=== PATIENT | female | born 1995 | race Caucasian/White ===

== ENCOUNTER 2016-11-25 16:08 | Emergency (ER) | payer BC ==
--- NOTE | 2016-12-01 11:08 | ER ---
ADMIT: 11/25/2016 RM/LOC: ER [facility] MR#: [id number] [facility] [address] [place], [place] [id number] EL[address]IA [address] [address] Emergency Room Report SEX: F AGE: 21 : 1995 DATE: 11/25/2016 HISTORY OF PRESENT ILLNESS: The patient is a 21-year-old, female, presents to the emergency room anxious, not feeling well, not eating, has not seen her mother for 6 years ago, so she is a bit more depressed now that she had in the past. The police officers were here as well. Friends apparently called on her because they were concerned about her well being. She denies any suicidal thoughts or suicidal plan in the past; however, about 3 to 5 years ago she attempted by trying to jump off a building, but somebody came and rescued her from it. 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 Her vitals are within normal limits. She is a little anxious. She is crying. She is obviously down. As I spoke with her in [place]ian, she was more adhesed and was able to open up. She is not a threat to herself. She is specifically explained to me that she is not wanting to harm self or anyone. She is just sad because she would like to see her family and she is unable to. They are in [place]. She left [place] when she was 14 years of age ended up in [place] and through [place] she came to [facility]. She has not been seen her family for about 6 to 7 years now. She has a boyfriend and a girlfriend that are from the same country, very good support system. They are here with her. Police talked to her. They do not feel like she is a candidate for EPC; however, I did advise her that if she felt despondent they felt very depressed in spite of the medications she is taking to please contact 911, come to the ER, or follow up with [facility]. At this point, she assures me that there is no need to worry about it. I did convince her to get some labs done. We did thyroid. We got a CMP with a free T4 and a TSH. These are all normal WBC normal as well. test is negative. Drug UDS negative. Her urine, however, did show trace of blood. It is hazy. Leukocytes 3+, wbc's 9, and rbc's 6 with a culture and sensitivity set up. I did treat her with Bactrim for her infection. Advised to call Dr. Quezada's office on Sunday. Advised to get the urine rechecked, take the antibiotics for 5 days with a start dose in the ER. Home and rest. I secured the fact that she does have good friend support. She is to follow up with Dr. Quezada. Prescription for Bactrim DS prescribed. She had received the bag of fluids in the ER, which she claims did help her greatly. She is more relaxed. Her friend is in the room with her. She is ready to go home. RYAN Burciaga / Mariusz Leonardo MD / ezra JOB #: [id number] CC: Mariusz Leonardo MD, Attending Physician Hudson Quezada MD, Family Physician
== END 2016-11-25 19:35 | disposition home or self-care (01) ==
LOC: ER 16:08
DX: F32.9 Major depressive disorder, single episode, unspecified (principal); N39.0 Urinary tract infection, site not specified